=== PATIENT | male | born 1945 | race Caucasian/White ===

== ENCOUNTER 2017-02-27 11:17 | Day surgery (SDC) | payer MEDICARE ==
[2017-02-19 16:53] LABS: BASOPHILS 0.7 %; BASOPHILS ABSOLUTE 0.02 10/3/uL (0.0-0.16); EOSINOPHILS 0 %; HEMATOCRIT 37.4 % (40.0-51.0); HEMOGLOBIN 13.1 g/dL (13.6-17.8); IMMATURE GRANULOCYTES 0.3 %; IMMATURE GRANULOCYTES ABSOLUTE 0.01 10/3/uL (0.0-0.11); MEAN CORPUSCULAR HEMOGLOB 30.7 pg (26.0-34.0); MEAN CORPUSCULAR VOLUME 87.6 fL (80-100); MONOCYTES 0.3 %; MONOCYTES ABSOLUTE 0.01 10/3/uL (0.21-1.20); NEUTROPHILS 88.7 %; NEUTROPHILS ABSOLUTE 2.67 10/3/uL (2.02-8.40); PLATELET COUNT 168 10/3/uL (150-400); RBC DISTRIBUTION WIDTH 13.4 % (12.0-16.0); RED CELL COUNT 4.27 10/6/uL (4.7-6.1)
[2017-02-19 16:54] LABS: MANUAL DIFF NO %
[2017-02-19 17:20] LABS: CALCIUM, SERUM 8.8 MG/DL (8.5-10.4); CHLORIDE, SERUM 109 MMOL/L (96-112); CO2 (CARBON DIOXIDE) 24 MMOL/L (24-34); CREATININE 1.16 MG/DL (0.70-1.30); GFR AFRICAN AMERICAN 74 ML/MIN (>=60); GFR NON AFRICAN AMERICAN 63 ML/MIN (>=60); POTASSIUM, SERUM 4.9 MMOL/L (3.5-5.3); SODIUM, SERUM 141 MMOL/L (135-148)
[2017-02-19 17:21] LABS: BUN (BLOOD UREA NITROGEN) 14 MG/DL (6-23); GLUCOSE, SERUM 182 MG/DL (60-99)
--- NOTE | ~2017-02-27 | OP ---
Record Of Operation [facility] [address] [place]. [address] NAME: SHEELA JERONIMO : 47 STATUS : [facility]#: [id number] AGE: 71 ADM/REG DATE : 02/27/17 MR#: [id number] REPORT SERV DATE: 02/27/17 DICTATED BY: JUANCHO PÉREZ DATE: 02/27/17 REPORT STATUS : Draft TRANSCRIBED BY: MODL DATE: 02/27/17 DATE OF PROCEDURE: 02/27/2017 PREOPERATIVE DIAGNOSES: 1. Basal cell carcinoma, left root of helix. 2. Basal cell carcinoma, right postauricular. POSTOPERATIVE DIAGNOSES: 1. Basal cell carcinoma, left root of helix. 2. Basal cell carcinoma, right postauricular. PROCEDURE PERFORMED: 1. Wide local excision of left helical root basal cell carcinoma with complex closure of 2.5 x 2.0 cm defect. 2. Wide local excision of right postauricular basal cell carcinoma. 3. Complex layered closure of 3.0 x 1.5 cm defect. SURGEON: Juancho Pérez M.D. SOLID DIE CUTTER: None. ANESTHESIA: MAC anesthesia. COMPLICATIONS: None. CONDITION: Stable to recovery. INDICATIONS: A 71-year-old male with basal cell carcinoma at the left root of helix and the right postauricular. Risks, benefits, and alternatives to surgical excision were explained and he agreed. PROCEDURE IN DETAIL: The patient was identified in preoperative holding, taken back to the operating room, placed supine on the operating room table. MAC anesthesia was established with propofol and local lidocaine was used for anesthesia, 1% lidocaine with 1:100,000 epinephrine. Initially, a time-out was called and the patient and procedure were confirmed. After this, the right postauricular basal cell carcinoma was outlined with a surgical marking pen. A 4 to 5 mm margin was inked around it and infiltrated subcutaneously with 3 mL of 1% lidocaine with 1:100,000 epinephrine. Following this, the left root of helix basal cell carcinoma was outlined with a surgical marking pen with a 4 to 5 mm margin around this and it was infiltrated subcutaneously with 1% lidocaine with 1:100,000 epinephrine approximately 2 mL. He was then prepped and draped in a standard fashion for the operation. Using 2.5x loupe magnification and headlight illumination, the operation commenced. Initially, the right neck postauricular basal cell carcinoma was addressed by using a 15 blade to make the skin incision. Bovie cautery was used to excise the skin lesion from the deep subcutaneous tissues and a defect of 3.0 x 1.5 cm was created after fashioning a Record Of Operation [place] [id number] [place]. [address] NAME: SHEELA JERONIMO : 47 STATUS : [facility]#: [id number] AGE: 71 ADM/REG DATE : 02/27/17 MR#: [id number] REPORT SERV DATE: 02/27/17 DICTATED BY: JUANCHO PÉREZ DATE: 02/27/17 REPORT STATUS : Draft TRANSCRIBED BY: VENKAT DATE: 02/27/17 Burow's triangle inferiorly. Undermining peripherally allowed for a tension-free closure using 3-0 Vicryl suture and a 5-0 interrupted Prolene suture. I then turned attention to the left helical root which was excised along with some cartilage of the superior helix and leaving a defect of 2.5 x 2.0 cm. The initial 12 o'clock margin was positive and this was revised and negative and sent for permanent pathology analysis. The defect was 2.5 x 2 cm in dimension and closed in layers using 3-0 Vicryl and a 5-0 interrupted Prolene suture. The superior helix had perichondrium intact and a small portion of this could not be closed primarily. It was coated with Dermabond to help with healing by secondary intention. At the end of the case, sponge and needle count were correct. The patient was awakened and taken to recovery in stable condition. There were no complications. PH/VENKAT Juancho Pérez M.D. / [id number]
[~2017-02-27 11:17] MED LIST: DENIES HOME MEDS; PCET PO; PRILO PO
== END 2017-02-27 17:19 | disposition home or self-care (01) ==
LOC: SDC 11:17
PROVIDERS: Specialist
PROC: 0JB10ZZ Excision of Face Subcutaneous Tissue and Fascia, Open Approach (ICD-10-PCS; principal; 2017-02-27 12:45)
DX: C44.212 Basal cell carcinoma of skin of right ear and external auricular canal (principal); Z85.038 Personal history of other malignant neoplasm of large intestine; Z85.46 Personal history of malignant neoplasm of prostate; Z85.89 Personal history of malignant neoplasm of other organs and systems; Z90.79 Acquired absence of other genital organ(s); Z98.890 Other specified postprocedural states; Z90.49 Acquired absence of other specified parts of digestive tract; C14.0 Malignant neoplasm of pharynx, unspecified; Z92.21 Personal history of antineoplastic chemotherapy; Z92.3 Personal history of irradiation; Z79.899 Other long term (current) drug therapy
CPT/HCPCS: 80048; 85025; 88305; 88331; 93005; J0690; J3010